=== PATIENT | female | born 1935 | race Caucasian/White ===

== ENCOUNTER 2016-07-27 11:14 | Emergency (ER) | payer MEDICARE ==
[~2016-07-27] VITALS: Ht 157.5 cm; Wt 47.0 kg
[~2016-07-27 11:14] MED LIST: IMIT50TA PO
[2016-07-27 11:21] VITALS: BP 149/58; PULSE 48; RESP 16; TEMP 98; O2SAT 100
--- NOTE | 2016-07-27 11:35 | PD ---
HPI . Left shoulder and elbow pain and skin tear of the left elbow since midnight last night Chief Complaint: Fall Time Seen by Provider: 11:29 Travel History International Travel<30 days: No Contact w/Intl Traveler<30days: No Traveled to known affect area: No History of Present Illness HPI 80-year-old female with history of COPD and A. fib here with complaints of left elbow & left shoulder pain since midnight. Patient was getting up to turn off her bedroom light and somehow slipped and fall hitting a cedar chest in her bedroom. She denies any head injury or loss of consciousness. She is complaining of left shoulder and elbow pain. Patient tells me that she heard something pop and now has difficulty moving her extremity. She also has a small skin tear to her left elbow that is causing her some discomfort. Pain is rated as 6/10 without any radiation. She does admit to some tingling sensation radiating down to her hands. She denies any head injury or loss of consciousness. PFSH Past Medical History Cancer: No Cardiovascular Problems: Yes ( ) COPD: Yes Diabetes: No Glaucoma: No Hepatitis: No Hiatal Hernia: No Hypertension: No Respiratory: Yes (COPD) Thyroid Disease: No Past Surgical History Abdominal Surgery: No Cardiac Surgery: No Ear Surgery: No Endocrine Surgery: No Eye Surgery: Yes (PHACO WITH RIGHT EYE) Genitourinary Surgery: No Gynecologic Surgery: Yes (TUBAL LIGATION) Oral Surgery: No Pacemaker: No Thoracic Surgery: No Social History Alcohol Use: Yes (DAILY) Tobacco Use: Yes (< 1PPD) Allergies-Medications (Allergen,Severity, Reaction): Coded Allergies: No Known Allergies (Verified , 07/27/16) Reported Meds & Prescriptions Reported Meds & Active Scripts Active Ibuprofen 800 Mg Tab 800 Mg PO TID Reported Ventolin Hfa 18 GM Inh (Albuterol Sulfate) 90 Mcg/Act Aer 1 Puff INH Q4H PRN Metoprolol Tartrate 50 Mg Tab 50 Mg PO BID Sumatriptan (Sumatriptan Succinate) 50 Mg Tab 50 Mg PO ONCE PRN If a satisfactory response has not been obtained at 2 hours, a second dose may be administered Review of Systems General / Constitutional: No: Fever Eyes: No: Visual changes HENT: No: Headaches Cardiovascular: No: Chest Pain or Discomfort Respiratory: No: Shortness of Breath Gastrointestinal: No: Abdominal Pain Genitourinary: No: Dysuria Musculoskeletal: Positive: Pain (left elbow and shoulder ) Skin: No Rash Neurologic: No: Weakness Psychiatric: No: Depression Endocrine: No: Polydipsia Hematologic/Lymphatic: No: Easy Bruising Physical Exam Narrative GENERAL: AAO x 3, no acute distress, Well-nourished, well-developed patient. SKIN: Warm and dry. No visible rashes. Left proximal forearm just distal to elbow skin tear, not amenable to repair HEAD: Normocephalic and atraumatic. EYES: No scleral icterus. No injection or drainage. EOM intact, PERRLA ENT: No nasal drainage noted. Mucous membranes pink. Airway patent. NECK: Supple, trachea midline. No JVD. CARDIOVASCULAR: Regular rate and rhythm without murmurs, gallops, or rubs. RESPIRATORY: Breath sounds equal bilaterally. No accessory muscle use. No rhonchi or rales. GASTROINTESTINAL: Abdomen soft, non-tender, nondistended. EXTREMITIES: No cyanosis or edema. tenderness to left elbow. Range of motion is normal in both shoulder and elbow. Patient has decreased strength in the left upper extremity. BACK: Nontender without obvious deformity. No CVA tenderness. PSYCH: AAO x 3, normal affect. Data Data Last Documented VS Vital Signs Date Time Temp Pulse Resp B/P Pulse Ox O2 Delivery O2 Flow Rate FiO2 07/27/16 11:58 67 07/27/16 11:21 98.0 16 149/58 100 Orders Elbow, Complete (4 Vws) (07/27/16 11:35) Shoulder, Complete (>2vws) (07/27/16 11:35) Wound Care (07/27/16 11:40) ^ Sling (07/27/16 13:44) Sling And Swathe (07/27/16 ) MDM Medical Decision Making Medical Screen Exam Complete: Yes Emergency Medical Condition: Yes Medical Record Reviewed: Yes Differential Diagnosis Contusion of the shoulder and elbow, less likely fracture, rotator cuff injury Narrative Course 80-year-old female with history of COPD and A. fib here with complaints of left elbow & left shoulder pain since midnight. Patient was getting up to turn off her bedroom light and somehow slipped and fall hitting a cedar chest in her bedroom. She denies any head injury or loss of consciousness. She is complaining of left shoulder and elbow pain. Patient tells me that she heard something pop and now has difficulty moving her extremity. She also has a small skin tear to her left elbow that is causing her some discomfort. Pain is rated as 6/10 without any radiation. She does admit to some tingling sensation radiating down to her hands. She denies any head injury or loss of consciousness. Patient seen and examined. She does have some difficulty moving her left upper extremity. There is some point tenderness. X-ray ordered. The skin abrasion was cleaned and dressed with a sterile dressing. There is a proximal humerus minimally displaced fracture. Sling and swathe. Ibuprofen as needed for pain. Explained that she will need to follow up with ortho: Dr. Jacobs information provided. Advised f/u with PCP. Patient verbalized understanding of instructions, questions were answered, and thanked me for their care. I advised them if their condition worsens, please return to the nearest emergency room for further care. Diagnosis Primary Impression: Left humeral fracture Qualified Code: S42.202A - Closed fracture of proximal end of left humerus, unspecified fracture morphology, initial encounter Additional Impressions: Left elbow contusion Abrasion forearm Referrals: Oscar Jacobs MD Patient Instructions: Abrasion (ED), Acute Wound Care (ED), Arm Fracture in Adults (ED), Contusion in Adults (ED), General Instructions Additional Instructions: Rest the affected area as much as possible. Ice this area for 15-20 minutes at a time. You can do this every hour or as much as tolerated. Elevate this area. Use ibuprofen as needed for pain and inflammation. Keep left elbow skin tear clean with soap and water. Apply antibiotic ointment daily with clean dressing. Please return to emergency department if your symptoms return or worsen. Follow up with your primary care provider. Take medications as prescribed. You will need to follow-up with orthopedic physician. I have provided a name for you. Please follow-up with your primary care provider. Scripts Ibuprofen 800 Mg [id number] Mg PO TID #21 TAB Prov:Jerson Rosario MD 07/27/16 Disposition: DISCHARGE HOME Condition: Stable Pretty Baltazar Jul 27, 2016 11:35
[2016-07-27] MEDS ORDERED: SUMA50TA2 PO (12:05)
[2016-07-27] MEDS ORDERED: METO50TA PO (12:05)
[2016-07-27] MEDS ORDERED: VENTAER INH (12:05)
--- NOTE | 2016-07-27 13:12 | RADHPO ---
EXAM DATE/TIME: 07/27/2016 12:12 [facility] COMPARISON: No previous studies available for comparison. INDICATIONS : Fall, left elbow laceration. MEDICAL HISTORY : None. SURGICAL HISTORY : None. ENCOUNTER: Initial ACUITY: 2 days PAIN SCORE: 1/10 LOCATION: Left elbow FINDINGS: Multiple view examination of the left elbow demonstrates no soft tissue swelling, joint effusion, or fracture. The osseous structures are in normal alignment. Bony mineralization is normal. CONCLUSION: No acute osseous injury. Oracio Harvey MD on July 27, 2016 at 13:10 Board Certified Radiologist. This report was verified electronically.
--- NOTE | 2016-07-27 13:25 | RADHPO ---
EXAM DATE/TIME: 07/27/2016 12:18 [facility] COMPARISON: No previous studies available for comparison. INDICATIONS : Fall, left shoulder pain. MEDICAL HISTORY : None. SURGICAL HISTORY : None. ENCOUNTER: Initial ACUITY: 2 days PAIN SCORE: 8/10 LOCATION: Left shoulder FINDINGS: Multiple view examination of the left shoulder demonstrates minimally displaced fracture through the surgical neck of the proximal humerus. Glenohumeral articulation is preserved. A.c. joint is intact. Visualized portions of the adjacent lung are clear. CONCLUSION: 1. Minimally displaced fracture through the surgical neck of the proximal humerus. 2. No dislocation. A.c. joint is intact. Visualized portions of the adjacent lung are clear. Oracio Harvey MD on July 27, 2016 at 13:22 Board Certified Radiologist. This report was verified electronically.
[2016-07-27] MEDS ORDERED: IBUP800T23 PO (13:46)
== END 2016-07-27 14:10 | disposition home or self-care (01) ==
LOC: PHEFT 11:14
DX: S42.212A Unspecified displaced fracture of surgical neck of left humerus, initial encounter for closed fracture (principal); S50.02XA Contusion of left elbow, initial encounter; F17.210 Nicotine dependence, cigarettes, uncomplicated; I48.91 Unspecified atrial fibrillation; W18.09XA Striking against other object with subsequent fall, initial encounter; Y92.003 Bedroom of unspecified non-institutional (private) residence as the place of occurrence of the external cause
CPT/HCPCS: 73030; 73080